=== PATIENT | female | born 1970 | race Two or more races ===

== ENCOUNTER 2025-03-14 19:06 | Emergency (ER) | payer MEDICAID, OTHER ==
[~2025-03-14] VITALS: Ht 165.1 cm; Wt 90.7 kg
[2025-03-14 19:46] LABS: PLATELET COUNT (AUTO) 221 K/uL (179-408); RED BLOOD CELL COUNT(AUTO) 3.34 MIL/uL (3.63-4.92); RED CELL DISTRIBUTION WIDTH 14.9 % (12.3-17.7); WHITE BLOOD COUNT (AUTO) 6.0 K/uL (3.8-11.8)
[2025-03-14 19:53] LABS: *BILIRUBIN,URIN NEGATIVE (NEGATIVE); *BLOOD, URINE 2+ (NEGATIVE); *CLARITY,URINE CLEAR (CLEAR); *COLOR,URINE YELLOW (YELLOW); *KETONES,URINE NEGATIVE (NEGATIVE); *PROTEIN,URINE 3+ (NEGATIVE); *UROBILINOGEN,URINE 0.2 E.U./dl (NORMAL); CREATININE 4.2 mg/dL (0.6-1.3); LEUKOCYTE ESTERASE ,URINE NEGATIVE (NEGATIVE); NITRITE, URINE NEGATIVE (NEGATIVE); SODIUM SERUM 135.0 mmol/L (136-145); UGLUCOSE 1+ (NEGATIVE); UREA NITROGEN, BLOOD 36.0 mg/dL (7-18)
[2025-03-14 20:04] LABS: ASPARTATE AMINOTRANSFERASE 20.0 U/L (15-37); SQUAMOUS EPITHELIAL CELL,UR MODERATE /HPF (NONE SEEN); TOTAL PROTEIN, SERUM 7.1 g/dL (6.4-8.2)
[2025-03-14] MEDS ORDERED: KETOROLAC TROMETHAMINE 30 MG INJ ONE (20:59)
[2025-03-14] MEDS: KETOROLAC TROMETHAMINE 30 MG INJ IM ONE (21:01)
[2025-03-14 21:40] LABS: *AMPHETAMINE, URINE NEGATIVE (NEGATIVE); *BARBITURATE, URINE NEGATIVE (NEGATIVE); *BENZODIAZEPINE, URINE NEGATIVE (NEGATIVE); *CANNABINOID, URINE NEGATIVE (NEGATIVE); *COCCAINE, URINE NEGATIVE (NEGATIVE); *OPIATE, URINE NEGATIVE (NEGATIVE); *PHENCYCLIDINE SCREEN,URINE NEGATIVE (NEGATIVE); FENTANYL, URINE NEGATIVE (NEGATIVE)
[2025-03-14] MEDS ORDERED: ONDANSETRON 4 MG/2 ML VIAL ONE (23:29)
[2025-03-14] MEDS ORDERED: MORPHINE SULFATE 2 MG/1 ML DISP.SYRIN ONE (23:29)
[2025-03-14] MEDS: ONDANSETRON 4 MG/2 ML VIAL IV ONE (23:30)
[2025-03-14] MEDS: MORPHINE SULFATE 2 MG/1 ML DISP.SYRIN IV ONE (23:31)
[2025-03-15 01:56] VITALS: O2SAT 97
== END 2025-03-15 02:15 | disposition short-term general hospital (02) ==
LOC: ER 19:06
DX: J18.9 Pneumonia, unspecified organism (principal); R53.1 Weakness; Z20.822 Contact with and (suspected) exposure to COVID-19
CPT/HCPCS: 99285; 96374; 71045; 96375; 87426; 87804 ×2; 80053; 82962; 83880; 85025; 84484; 36415; 93005; 96372; 80307; 81001; J1885; J2405; J2270; A4606; A4663

== ENCOUNTER 2025-04-22 11:11 | Emergency (ER) | payer MEDICAID, OTHER ==
[~2025-04-22] VITALS: Ht 157.5 cm; Wt 90.7 kg
[2025-04-22] MEDS ORDERED: IBUP-1955 PO (11:26)
[2025-04-22] MEDS ORDERED: IBUPROFEN 600 MG TABLET ONE (11:33)
[2025-04-22] MEDS: IBUPROFEN 600 MG TABLET PO ONE (11:34)
[2025-04-22] MEDS ORDERED: ATOR40TA PO (11:53)
[2025-04-22] MEDS ORDERED: ASPI-495 PO (11:53)
[2025-04-22 12:12] LABS: PLATELET COUNT (AUTO) 203 K/uL (179-408); RED BLOOD CELL COUNT(AUTO) 2.96 MIL/uL (3.63-4.92); RED CELL DISTRIBUTION WIDTH 14.9 % (12.3-17.7); WHITE BLOOD COUNT (AUTO) 7.7 K/uL (3.8-11.8)
[2025-04-22] MEDS ORDERED: ESCI5TAB PO (12:18)
[2025-04-22] MEDS ORDERED: MAGN400O6 PO (12:18)
[2025-04-22] MEDS ORDERED: GABA300C PO (12:18)
[2025-04-22] MEDS ORDERED: HYDR-894 PO (12:18)
[2025-04-22] MEDS ORDERED: PYRI-6 PO (12:18)
[2025-04-22] MEDS ORDERED: METO25TA6 PO (12:18)
[2025-04-22] MEDS ORDERED: ACET-2030 PO (12:18)
[2025-04-22] MEDS ORDERED: FURO40TA5 PO (12:18)
[2025-04-22 12:46] LABS: CREATININE 5.5 mg/dL (0.6-1.3); SODIUM SERUM 144 mmol/L (136-145); UREA NITROGEN, BLOOD 46 mg/dL (7-18)
[2025-04-22 12:49] LABS: ETHANOL < 3 MG/DL (0-10)
[2025-04-22 12:52] LABS: ASPARTATE AMINOTRANSFERASE 9 U/L (15-37); TOTAL PROTEIN, SERUM 6.7 g/dL (6.4-8.2)
[2025-04-22 12:53] LABS: *BILIRUBIN,URIN NEGATIVE (NEGATIVE); *CLARITY,URINE CLEAR (CLEAR); *COLOR,URINE YELLOW (YELLOW); *KETONES,URINE NEGATIVE (NEGATIVE); *UROBILINOGEN,URINE 0.2 E.U./dl (NORMAL); LEUKOCYTE ESTERASE ,URINE NEGATIVE (NEGATIVE); NITRITE, URINE NEGATIVE (NEGATIVE); UGLUCOSE TRACE (NEGATIVE)
[2025-04-22 12:57] LABS: *BLOOD, URINE TRACE (NEGATIVE); *PROTEIN,URINE 3+ (NEGATIVE)
[2025-04-22 13:14] LABS: *AMPHETAMINE, URINE NEGATIVE (NEGATIVE); *BARBITURATE, URINE NEGATIVE (NEGATIVE); *BENZODIAZEPINE, URINE NEGATIVE (NEGATIVE); *CANNABINOID, URINE NEGATIVE (NEGATIVE); *COCCAINE, URINE NEGATIVE (NEGATIVE); *OPIATE, URINE NEGATIVE (NEGATIVE); *PHENCYCLIDINE SCREEN,URINE NEGATIVE (NEGATIVE); FENTANYL, URINE NEGATIVE (NEGATIVE)
[2025-04-22 13:40] LABS: SQUAMOUS EPITHELIAL CELL,UR MODERATE /HPF (NONE SEEN)
[2025-04-22] MEDS ORDERED: CLONIDINE HCL 0.1 MG TABLET ONE (14:16)
[2025-04-22 14:20] VITALS: BP 163/88
[2025-04-22] MEDS: CLONIDINE HCL 0.1 MG TABLET PO ONE (14:20)
[2025-04-22 20:34] VITALS: BP 137/84; O2SAT 98
== END 2025-04-22 20:46 | disposition short-term general hospital (02) ==
LOC: ER 11:11
DX: S53.492A Other sprain of left elbow, initial encounter (principal); S63.592A Other specified sprain of left wrist, initial encounter; F29 Unspecified psychosis not due to a substance or known physiological condition; E78.5 Hyperlipidemia, unspecified; F32.A Depression, unspecified; I12.9 Hypertensive chronic kidney disease with stage 1 through stage 4 chronic kidney disease, or unspecified chronic kidney disease; N18.9 Chronic kidney disease, unspecified; Z79.899 Other long term (current) drug therapy; Z20.822 Contact with and (suspected) exposure to COVID-19; W22.03XA Walked into furniture, initial encounter; Y93.89 Activity, other specified; Y92.89 Other specified places as the place of occurrence of the external cause; Y99.8 Other external cause status
CPT/HCPCS: 36415; 73080; 73110; 85025; A4606; A4663; G0480